=== PATIENT | male | born 1950 | race Caucasian/White ===

== ENCOUNTER → 2023-07-10 08:27 | Outpatient (REF) | payer MEDICARE, OTHER, SELFPAY | LOC: HWRAD 08:27 | PROVIDERS: ATTENDING PHYSICIAN Internal Medicine Endocrinology, Diabetes & Metabolism; FAMILY PHYSICIAN Nurse Practitioner Family | DX: E05.90 Thyrotoxicosis, unspecified without thyrotoxic crisis or storm (principal) | CPT/HCPCS: 76536 ==

== ENCOUNTER 2024-08-14 06:15 | Day surgery (SDC) | payer MEDICARE, OTHER, SELFPAY ==
[2024-08-14 07:15] VITALS: BP 141/81; BMI 28.0
[2024-08-14 07:16] VITALS: BMI 28.0
[2024-08-14 08:51] VITALS: BP 118/78
[2024-08-14 09:00] VITALS: BP 123/81
[2024-08-14 09:15] VITALS: BP 130/77
== END 2024-08-14 09:25 | disposition home or self-care (01) ==
LOC: SDS 06:15
PROVIDERS: ATTENDING PHYSICIAN Internal Medicine Gastroenterology
DX: K31.A29 Gastric intestinal metaplasia with dysplasia, unspecified (principal); K22.89 Other specified disease of esophagus; K31.89 Other diseases of stomach and duodenum; D17.5 Benign lipomatous neoplasm of intra-abdominal organs
CPT/HCPCS: 43239; 88305; 88342